=== PATIENT | male | born 1995 | race African-American/Black ===

== ENCOUNTER 2017-03-31 21:07 | Inpatient (IN) | payer OTHER ==
[~2017-03-31] VITALS: Ht 180.3 cm; Wt 71.9 kg
[2017-03-31 22:55] LABS: BASOPHIL % 0.5 % (0-2); PLATELET COUNT 283 x10^3mcL (130-400); RED CELL DISTRIBUTION WIDTH 12.4 % (11.5-14.5)
[2017-03-31 23:05] LABS: CALCIUM 9.2 mg/dL (8.5-10.1); CARBON DIOXIDE 29.3 mmol/L (21-32); CHLORIDE SERUM 100 mmol/L (98-107); CREATININE SERUM 0.8 mg/dL (0.7-1.3); GFR1 > 60 mL/min; GLUCOSE SERUM 92 mg/dL (74-106); POTASSIUM SERUM 3.5 mmol/L (3.5-5.1); SODIUM SERUM 141 mmol/L (136-145)
[2017-03-31 23:10] LABS: ALBUMIN 4.4 g/dL (3.4-5.0); ALKALINE PHOSPHATASE 81 U/L (46-116); ALT/SGPT 20 U/L (16-63); AST/SGOT 16 U/L (15-37); BILIRUBIN TOTAL 0.3 mg/dL (0.20-1.00); TOTAL PROTEIN, SERUM 7.7 g/dL (6.4-8.2)
[2017-04-01 01:58] VITALS: BP 128/77
[2017-04-01 03:03] LABS: MAGNESIUM 1.9 mg/dL (1.8-2.4); PHOSPHOROUS 4.6 mg/dL (2.5-4.9)
[2017-04-01 03:05] LABS: T3 TOTAL 1.33 ng/mL
[2017-04-01 03:06] LABS: CHOLESTEROL/HDL RATIO 2.9
[2017-04-01 03:12] LABS: FREE T4 1.22 ng/dL (0.76-1.46); FREE THYROXINE INDEX 3.1 ug/dL (1.4-4.5); T4(THYROXINE) 9.3 ug/dL (4.7-13.3)
[2017-04-01 06:18] VITALS: BP 132/69
[2017-04-01 09:25] VITALS: BP 96/61
[2017-04-01 10:26] LABS: microscopic required? NO
[2017-04-01 10:34] LABS: UA SPECIFIC GRAVITY <=1.005 (1.005-1.035); urine erythrocyte NEGATIVE (NEGATIVE)
[2017-04-01 10:41] LABS: AMPHETAMINE QUAL UR NONE DETECTED (NEG <=1000)
[2017-04-01 12:40] VITALS: BP 114/62
[2017-04-01 17:08] VITALS: BP 128/66
[2017-04-01 20:58] VITALS: BP 125/80
[2017-04-02 05:16] VITALS: BP 113/65
[2017-04-02 06:47] LABS: CALCIUM 8.8 mg/dL (8.5-10.1); CARBON DIOXIDE 27.1 mmol/L (21-32); CHLORIDE SERUM 108 mmol/L (98-107); CREATININE SERUM 0.9 mg/dL (0.7-1.3); GFR1 > 60 mL/min; GLUCOSE SERUM 93 mg/dL (74-106); POTASSIUM SERUM 3.7 mmol/L (3.5-5.1); SODIUM SERUM 143 mmol/L (136-145)
[2017-04-02 07:04] LABS: BASOPHIL % 0.4 % (0-2); PLATELET COUNT 237 x10^3mcL (130-400); RED CELL DISTRIBUTION WIDTH 12.5 % (11.5-14.5)
[2017-04-02 09:22] VITALS: BP 133/67
[2017-04-02] MEDS ORDERED: ECO81 PO (09:38)
[2017-04-02 10:56] VITALS: BP 109/58
[2017-04-02 12:58] VITALS: BP 109/58
== END 2017-04-02 13:45 | disposition home or self-care (01) | DRG 206 ==
LOC: ED 21:07 → DU 04-01 00:29
PROVIDERS: Emergency Medicine; ADMIT Family Medicine
DX: M94.0 Chondrocostal junction syndrome [Tietze] (principal); M30.3 Mucocutaneous lymph node syndrome [Kawasaki]; E78.1 Pure hyperglyceridemia; E02 Subclinical iodine-deficiency hypothyroidism
CPT/HCPCS: 83880; 84439; J1885; J7030; J7040; Q0092